=== PATIENT | male | born 1995 | race Caucasian/White ===

== ENCOUNTER 2020-08-30 07:48 | Observation (INO) | payer BC ==
[~2020-08-30] VITALS: Ht 175.3 cm; Wt 63.6 kg
[2020-08-30 08:46] LABS: BASO % 0.4 % (0.0-2.0); EOS # 0.1 (0.0-0.7); EOS % 1.6 % (0-4.0); GRAN # 5.4 (1.4-6.5); GRAN % 65.8 % (42.2-75.2); HEMATOCRIT 40.5 % (42.0-52.0); HEMOGLOBIN 14.1 g/dl (13.5-18.0); LYMPH # 1.6 (1.2-3.4); MEAN CELL VOLUME 89 fl (80.0-100.0); MEAN CORPUSCULAR HEMOGLOBIN 31 pg (27.0-31.0); MEAN CORPUSCULAR HGB CONC 35 g/dl (33.0-37.0); MEAN PLATELET VOLUME 8.5 fl (7.4-10.4); MONO % 11.8 % (1.7-9.3); PLATELET COUNT 226 K/mm3 (130-400); RED BLOOD COUNT 4.56 M/mm3 (4.20-5.60); REDCELL DISTRIBUTION WIDTH-CV 11.5 % (11.5-14.5)
[2020-08-30 08:57] LABS: ALBUMIN 4.4 gm/dL (3.5-5.0); BILIRUBIN,TOTAL 1.2 mg/dL (0.0-1.0); C-REACTIVE PROTEIN 3.2 mg/dL (0.0-0.9); CREATININE, serum 0.85 (0.66-1.25); POTASSIUM 4.1 mmol/L (3.4-5.0); TOTAL PROTEIN 7.8 gm/dL (6.4-8.2)
[2020-08-30 09:05] LABS: INR 1.3 (0.8-3.0); PROTHROMBIN TIME 14.1 SECONDS (9.7-12.8)
[2020-08-30 09:08] LABS: D-DIMER < 200.00 ng/mLDDu (200-230)
[2020-08-30 09:22] LABS: TROPONIN-I 4.49 ng/mL (0.000-0.035)
[2020-08-30 12:02] LABS: COLLECTION METHOD CLEAN CATCH
[2020-08-30 12:11] LABS: MUCOUS Present /lpf; PH 5 (5-8); SQUAMOUS EPITHELIAL None Seen /hpf; URINE APPEARANCE Hazy; URINE BACTERIA Rare /hpf; URINE BILIRUBIN Negative (NEGATIVE); URINE BLOOD Negative (NEGATIVE); URINE COLOR Yellow; URINE GLUCOSE Negative (NEGATIVE); URINE KETONE 1+ (NEGATIVE); URINE LEUKOCYTE ESTERASE Negative (NEGATIVE); URINE NITRATE Negative (NEGATIVE); URINE PROTEIN(semi-quant) 1+ (NEGATIVE); URINE RBC 0-2 /hpf; URINE UROBILINOGEN Negative (NEGATIVE)
[2020-08-30 16:32] VITALS: BP 123/75; PULSE 69; TEMP 98.1
--- NOTE | 2020-08-30 17:30 | NUR ---
Pt doing well, resting in bed. I have been in to check on him about every 15-20 minutes. His mom and girlfriend are present in the room with him. Pt did have another elevated Troponin, Dr Garza notified, new order for lab given. Pt states that he had a brief epidose of a dull pain in his sternum, but only last a short time. Pain does not increase when he takes a deep breath or with movement. Will continue to monitor.
[2020-08-30 18:54] VITALS: BP 126/66; PULSE 67; TEMP 97.9
--- NOTE | 2020-08-30 19:32 | NUR ---
Awake, alert, oriented x 4, sitting in bed, SO at bedside, VS stable, telemetry in use, denies pain, good appetite, monitoring troponin levels as ordered, updated on plan of care.
--- NOTE | 2020-08-30 20:19 | NUR ---
Call placed to Kalpana NOEL- notified of critical troponin level of 11.2.
--- NOTE | 2020-08-30 20:30 | NUR ---
Sitting up in bed, assessment completed, irregular heart rhythm noted, patient denies palpitations, chest pain, SHOB, - Kalpana NOEL notified of patient heart rhythm, telemetry in use, will continue to monitor.
[2020-08-30 23:33] VITALS: BP 127/65; PULSE 83; TEMP 97.6
--- NOTE | 2020-08-31 00:43 | NUR ---
Verbal order received from Kalpana Ames for CBC w/diff, BMP, and troponin level this am at 0500.
[2020-08-31 03:49] VITALS: BP 112/41; PULSE 77; TEMP 97.6
--- NOTE | 2020-08-31 06:01 | NUR ---
resting quietly, denies chest pain, telememtry in use, no issues at this time.
[2020-08-31 07:13] LABS: BASO % 0.3 % (0.0-2.0); EOS # 0.2 (0.0-0.7); EOS % 2.9 % (0-4.0); GRAN # 3.3 (1.4-6.5); GRAN % 53.4 % (42.2-75.2); HEMOGLOBIN 14.1 g/dl (13.5-18.0); LYMPH # 2.1 (1.2-3.4); MEAN CELL VOLUME 88 fl (80.0-100.0); MEAN CORPUSCULAR HEMOGLOBIN 31 pg (27.0-31.0); MEAN CORPUSCULAR HGB CONC 35 g/dl (33.0-37.0); MEAN PLATELET VOLUME 8.6 fl (7.4-10.4); MONO # 0.6 (0.1-0.6); MONO % 9.1 % (1.7-9.3); PLATELET COUNT 242 K/mm3 (130-400); RED BLOOD COUNT 4.54 M/mm3 (4.20-5.60); REDCELL DISTRIBUTION WIDTH-CV 11.7 % (11.5-14.5)
[2020-08-31 07:32] LABS: CALCIUM 9.1 mg/dL (8.4-10.2); CREATININE, serum 0.82 (0.66-1.25); POTASSIUM 4.2 mmol/L (3.4-5.0)
[2020-08-31 07:40] LABS: TROPONIN-I 6.82 ng/mL (0.000-0.035)
[2020-08-31 07:56] VITALS: BP 121/69; PULSE 82; TEMP 97.6
--- NOTE | 2020-08-31 08:00 | NUR ---
Patient resting in bed at this time, at bedside. Patient denies pain or needs at this time, call light within reach.
[2020-08-31] MEDS ORDERED: PROTONIX 40MG T40 MG PO (10:17)
[2020-08-31] MEDS ORDERED: Motrin PO (10:17)
--- NOTE | 2020-08-31 12:15 | NUR ---
Discharge teaching completed. Discussed follow up appointments, discharge medicaitons, and discharge intructions. IV removed, catheter intact, hemostasis achieved. Telemetry removed. Patient and 's questions asked and answered. Patient denied further concerns. Patient confirmed all personal belongings were gathered and was escorted to ED entrance where he entered a private vehicle.
--- NOTE | 2020-08-31 12:49 | NUR ---
First visit from the repair specialist. No needs right now.
== END 2020-08-31 12:15 | disposition home or self-care (01) ==
LOC: COL.ER 07:48 → MEDICAL 14:07
PROVIDERS: Emergency Medicine; ADMIT Student in an Organized Health Care Education/Training Program
DX: I40.9 Acute myocarditis, unspecified (principal); R74.8 Abnormal levels of other serum enzymes; Z82.49 Family history of ischemic heart disease and other diseases of the circulatory system
CPT/HCPCS: G0378; J2060